=== PATIENT | male | born 1985 | race Caucasian/White ===

== ENCOUNTER 2021-08-27 19:14 | Emergency (ER) | payer OTHER | END 2021-08-27 20:10 | disposition home or self-care (01) | LOC: FER 19:14 | DX: T15.01XA Foreign body in cornea, right eye, initial encounter (principal); X58.XXXA Exposure to other specified factors, initial encounter; Y93.G3 Activity, cooking and baking; Y92.009 Unspecified place in unspecified non-institutional (private) residence as the place of occurrence of the external cause | CPT/HCPCS: 99283 ==